=== PATIENT | female | born 1940 | race Caucasian/White ===

== ENCOUNTER → 2017-04-26 | Outpatient (CLI) | payer MEDICARE, BC ==
[~2017-04-26] VITALS: Ht 157.5 cm; Wt 90.5 kg
[~2017-04-26] MED LIST: ADVIL COLD; ADVIL COLD-SIN1 EACH PO; ANASTROZOLE1 MG PO; GOOD NEIGHBOR500 M2; HYDROCHLOROTHIA1 T14 PO; LATANOPROST 2.2.5 ML OP; LEVOTHYROXINE PO; LISINOPRIL AND1 TA1; TEMOVATE CREAM15 GM TP; TIMOLOL OPHTHALMIC OU; XALATAN 2.5 ML2.5 ML; ZESTORETIC 10-1 EACH PO; [UNRECOGNIZED DRUG - OTHER]
[2017-04-26 13:00] VITALS: BP 126/76
== END ==
LOC: AMSURD 12:15
DX: Z01.818 Encounter for other preprocedural examination (principal); M17.11 Unilateral primary osteoarthritis, right knee; N30.00 Acute cystitis without hematuria

== ENCOUNTER → 2017-05-12 | Outpatient (CLI) | payer MEDICARE, BC ==
[~2017-05-12] VITALS: Ht 157.5 cm; Wt 90.5 kg
[2017-05-12 15:34] VITALS: BP 156/79
== END ==
LOC: AMSURD 15:23
DX: I47.1 Supraventricular tachycardia (principal)

== ENCOUNTER → 2020-07-12 | Outpatient (CLI) | payer MEDICARE, BC ==
[2017-05-12 15:34] VITALS: BP 156/79
[2020-07-12 12:20] LABS: EOS # 0.1 (0.04-0.40); EOS % 1.7 % (1.0-5.0); HEMATOCRIT 46.3 % (37.0-47.0); HEMOGLOBIN 14.7 g/dL (12.5-16.0); MEAN CELL VOLUME 87 fl (78-100); MEAN CORPUSCULAR HEMOGLOBIN 28 pg (27-31); MEAN CORPUSCULAR HGB CONC 32 g/dL (33-37); MONO # 0.8 (0.20-0.80); PLATELET COUNT 230 K/mm3 (130-400); RED BLOOD COUNT 5.33 M/mm3 (4.10-5.30); WHITE BLOOD COUNT 6.9 K/mm3 (4.8-10.8)
[2020-07-12 12:26] LABS: POTASSIUM 4.1 mmol/L (3.5-5.1)
[2020-07-12 12:27] LABS: ALBUMIN 4.4 g/dL (3.4-4.8)
[2020-07-12 12:28] LABS: CALCIUM 9.7 mg/dL (8.3-10.5)
[2020-07-12 12:29] LABS: TOTAL PROTEIN 7.4 g/dL (6.2-8.1)
[2020-07-12 12:31] LABS: TOTAL BILIRUBIN 0.3 mg/dL (0.2-1.2); URINE APPEARANCE CLEAR; URINE COLOR YELLOW
[2020-07-12 12:32] LABS: URINE BILIRUBIN NEGATIVE (NEGATIVE); URINE BLOOD 50 ery/uL (NEGATIVE); URINE GLUCOSE NEGATIVE (NEGATIVE); URINE KETONE NEGATIVE (NEGATIVE); URINE LEUKOCYTE ESTERASE TRACE (NEGATIVE); URINE NITRATE NEGATIVE (NEGATIVE); URINE PROTEIN(semi-quant) NEGATIVE (NEGATIVE); URINE UROBILINOGEN NORMAL (NORMAL)
[2020-07-12 13:15] LABS: ERYTHROCYTE SEDIMENTATION RATE 8 mm/hr (0-30)
== END ==
LOC: LAB 12:05
PROVIDERS: Internal Medicine
DX: Z12.11 Encounter for screening for malignant neoplasm of colon (principal); I10 Essential (primary) hypertension; R73.02 Impaired glucose tolerance (oral); K90.9 Intestinal malabsorption, unspecified; E03.9 Hypothyroidism, unspecified; I47.1 Supraventricular tachycardia

== ENCOUNTER → 2020-08-01 | Outpatient (CLI) | payer MEDICARE, BC ==
[2017-05-12 15:34] VITALS: BP 156/79
== END ==
LOC: LAB 12:15
DX: Z12.11 Encounter for screening for malignant neoplasm of colon (principal); I10 Essential (primary) hypertension; E03.9 Hypothyroidism, unspecified; I47.1 Supraventricular tachycardia; R73.02 Impaired glucose tolerance (oral)

== ENCOUNTER → 2020-09-06 | Outpatient (CLI) | payer MEDICARE, BC ==
[2017-05-12 15:34] VITALS: BP 156/79
== END ==
LOC: LAB 11:35
DX: K90.9 Intestinal malabsorption, unspecified (principal)

== ENCOUNTER → 2020-12-03 | Outpatient (CLI) | payer MEDICARE, BC ==
[2017-05-12 15:34] VITALS: BP 156/79
== END ==
LOC: LAB 11:46
DX: K90.9 Intestinal malabsorption, unspecified (principal)

== ENCOUNTER → 2020-12-27 | Outpatient (CLI) | payer MEDICARE, BC ==
[2017-05-12 15:34] VITALS: BP 156/79
== END ==
LOC: LAB 11:35
DX: K90.9 Intestinal malabsorption, unspecified (principal)

== ENCOUNTER → 2021-08-14 | Outpatient (CLI) | payer MEDICARE, BC ==
[2021-08-14 16:36] LABS: BASO # 0.02 (0.02-0.10); EOS # 0.17 (0.04-0.40); EOS % 2.1 % (1.0-5.0); HEMATOCRIT 43.9 % (37.0-47.0); LYMPH# 1.13 (1.50-4.00); MEAN CELL VOLUME 89 fl (78-100); MEAN CORPUSCULAR HEMOGLOBIN 28 pg (27-31); MEAN CORPUSCULAR HGB CONC 32 g/dL (33-37); MEAN PLATELET VOLUME 9.8 fl (7.4-10.4); MONO # 1.02 (0.20-0.80); NEU # 5.85 (1.40-6.50); PLATELET COUNT 230 K/mm3 (130-400); RED BLOOD COUNT 4.95 M/mm3 (4.10-5.30); RED CELL DISTRIBUTION WIDTH 14.3 % (11.5-14.5); WHITE BLOOD COUNT 8.2 K/mm3 (4.8-10.8)
[2021-08-14 16:56] LABS: ALBUMIN 4.1 g/dL (3.4-4.8)
[2021-08-14 16:57] LABS: CALCIUM 10.2 mg/dL (8.3-10.5)
[2021-08-14 16:59] LABS: TOTAL PROTEIN 7.3 g/dL (6.2-8.1)
[2021-08-14 17:01] LABS: TOTAL BILIRUBIN 0.3 mg/dL (0.2-1.2)
[2021-08-14 17:06] LABS: MAGNESIUM 2.27 mg/dL (1.60-2.60)
== END ==
LOC: LAB 16:15
PROVIDERS: Internal Medicine
DX: Z00.00 Encounter for general adult medical examination without abnormal findings (principal); E78.2 Mixed hyperlipidemia; E03.4 Atrophy of thyroid (acquired); K90.9 Intestinal malabsorption, unspecified; I10 Essential (primary) hypertension

== ENCOUNTER → 2021-10-24 | Outpatient (CLI) | payer MEDICARE, BC | LOC: LAB 11:17 | DX: K90.9 Intestinal malabsorption, unspecified (principal) ==

== ENCOUNTER → 2024-12-21 | Outpatient (CLI) | payer MEDICARE, BC ==
[2024-12-21 09:58] LABS: BASO # 0.02 K/mm3 (0.02-0.10); EOS # 0.11 K/mm3 (0.04-0.40); EOS % 2.2 % (1.0-5.0); HEMATOCRIT 45.9 % (37.0-47.0); HEMOGLOBIN 14.6 g/dL (12.5-16.0); LYMPH# 1.04 K/mm3 (1.50-4.00); MEAN CELL VOLUME 89 fl (78-100); MEAN CORPUSCULAR HEMOGLOBIN 28 pg (27-31); MEAN CORPUSCULAR HGB CONC 32 g/dL (33-37); MEAN PLATELET VOLUME 9.6 fl (7.4-10.4); MONO # 0.58 K/mm3 (0.20-0.80); PLATELET COUNT 232 K/mm3 (130-400); RED BLOOD COUNT 5.17 M/mm3 (4.10-5.30); RED CELL DISTRIBUTION WIDTH 14.4 % (11.5-14.5); WHITE BLOOD COUNT 5.1 K/mm3 (4.8-10.8)
[2024-12-21 10:00] LABS: ALBUMIN 4.3 g/dL (3.4-4.8)
[2024-12-21 10:02] LABS: TOTAL PROTEIN 7.2 g/dL (6.2-8.1)
[2024-12-21 10:04] LABS: TOTAL BILIRUBIN 0.4 mg/dL (0.2-1.2)
[2024-12-21 10:08] LABS: PH-URINE 6.5 (5.0 - 8.0); URINE APPEARANCE CLEAR (CLEAR); URINE BILIRUBIN NEGATIVE (NEGATIVE); URINE BLOOD 2+ (NEGATIVE); URINE COLOR YELLOW (YELLOW); URINE GLUCOSE NEGATIVE (NEGATIVE); URINE KETONE NEGATIVE (NEGATIVE); URINE LEUKOCYTE ESTERASE 1+ (NEGATIVE); URINE MUCUS PRESENT (NOT PRESENT); URINE NITRATE NEGATIVE (NEGATIVE); URINE PROTEIN(semi-quant) NEGATIVE (NEGATIVE)
[2024-12-21 10:09] LABS: MAGNESIUM 2.22 mg/dL (1.60-2.60)
== END ==
LOC: LAB 09:34
PROVIDERS: Internal Medicine
DX: Z12.11 Encounter for screening for malignant neoplasm of colon (principal); K90.9 Intestinal malabsorption, unspecified; E03.4 Atrophy of thyroid (acquired); I10 Essential (primary) hypertension; E78.2 Mixed hyperlipidemia; R73.03 Prediabetes

== ENCOUNTER → 2024-12-28 | Outpatient (CLI) | payer MEDICARE, BC | LOC: LAB 15:22 | DX: Z12.11 Encounter for screening for malignant neoplasm of colon (principal) ==